=== PATIENT | male | born 1990 | race Caucasian/White ===

== ENCOUNTER 2025-04-03 17:13 | Emergency (ER) | payer OTHER, SELFPAY ==
[2025-04-03 17:25] VITALS: BP 153/88; PULSE 78; TEMP 36.7; O2SAT 98; BMI 43.7
--- OUTSIDE RECORDS SUMMARY | 2025-04-03 17:37 | XMS_ITS | Encounter Summary ---
Author Organization [facility] tem Address [facility] [id number] [address] 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 Role Phone Luzma Lainez Juan F [employer] PROJECT ENGINEER Primary Care Provider + Encounter Details Date Type Department Care Team (Late st Contact Info) Description [facility]02[facility]2023 [facility] [address] [place] [id number] Elin Nelson CMA Social History Tobacco Use Types Packs/Day Years Used Date Smoking Tobacco: Never Smokeless Tobacco: Never Alcohol Use Standard Drinks/Week Comments Yes 0 (1 standard drink = 0.6 oz pur e alcohol) Occasional PHQ-2 Answer Date Recorded Total Score 0 09/04/2023 Childcare Answer Date Recorded Childcare Unknown 03/23/2019 Employment Answer Date Recorded Employment Unknown 03/23/2019 Hunger Screening Answer Date Recorded Within the past 12 months we worried whether our food would run out before we got money to buy more. Never True 09/04/2023 Within the past 12 months th e food we bought just didn't last and we didn't have money to get more. 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 He sated he doesnot know why he was not tested for anything. His breathing was so bad he got his mother's inhaler to help. He wanted to know what medical advice we could give him? I said I could not give him what totake for his symptoms that it had to come from the provider. He told me it was ridiculous and hung up on me. * Telephone Encounter - MARY ALICE Castro - 09/02/2023 4:07 PM EST His symptoms were more GI related at his appt and his lungs were clear. It appears his symptoms have changed if he is SOB. Please offer him soonest available appt or I can see him Saturday. In meantimehe can take Claritin D or Zyrtec D and I can send him an inhaler. * Telephone Encounter - Elin Nelson CMA - 09/02/2023 4:07 PM EST Left message for patient to call if any other questions came about. * Telephone Encounter - Elin Nelson CMA - 09/02/2023 4:07 PM EST Pt would like an inhaler sent in documented in this encounter Plan of Treatment Not on file documented as of this encounter Visit Diagnoses Not on filedocumented in this encounter Additional Health Concerns Assessment Noted Time PHQ-9 Depression Total Score: 0 08/29/20 23 12:51 PM EST documented as of this encounter Care Teams [employer] Printing Press Operator Relationship Specialty Start Date End Date Luzma Lainez APRN-CNP [address] [place] [address] PCP - General Internal Medicine 03/06/23 documented as of this encounter
--- NOTE | 2025-04-03 17:51 | ED_ITS ---
HPI HPI - General Adult General Chief complaint: Extremity Problem, Nontraumatic Stated complaint: NUMBNESS IN L HAND, R FINGERTIPS Time Seen by Provider: 04/03/25 17:27 Source: patient Mode of arrival: walk-in Limitations: no limitations History of Present Illness HPI narrative: Patient is a 34-year-old male who presents to the emergency department today for evaluation of concerns for paresthesias to his left upper extremity. He denies any injuries/trauma. He reports he works at [employer] on an [employer] line and reports repetitive movement of his upper extremities. He mentions for the past week he has had paresthesias mostly to the lower aspect of his left arm through the fingertips. He reports this is worsened by raising his left arm and does endorse some pain to the posterior shoulder region. He denies any neck or back pain. Historically no fevers or malignancy. Related Data Previous Rx's ?Medication ?Instructions ?Recorded methylprednisolone 4 mg tablets in 4 mg PO QID 4 doses #21 ea 04/03/25 a dose pack (Medrol (Abbe)) Allergies Allergy/AdvReac Type Severity Reaction Status Date / Time fish oil Allergy Severe Hives Verified 04/03/25 17:24 Review of Systems ROS Status of ROS 10 or more systems reviewed and unremark able except as noted in history and below PFSH PFSH Social History Little interest or pleasure in doing things: not at all Feeling down, depressed, or hopeless: not at all Exam Narrative Exam Narrative: Constituational: Awake/ alert, no apparent distress, well hydrated HENMT: normocephalic, external ears normal, moist oral mucous membranes and oropharynx normal Eyes: EOMI and conjunctivae normal Neck: ROM intact Chest: inspection of chest normal Respiratory: Normal respiratory effort, clear to auscultation bilaterally Cardio: regular rate and regular rhythm GI: soft to palpation and non-tender Back: nontender MSK: + Mild discomfort to palpation of her posterior L shoulder otherwise ROM intact, negative Tinel and Phalen sign, +NVI Skin: no rashes or petechiae Neuro: no focal deficits Psych: mental status grossly normal Constitutional Vital Signs, click to edit/add: Last Vital Signs Temp 98.1 F 04/03/25 17:25 Pulse 78 04/03/25 17:25 Resp 16 04/03/25 17:25 BP 153/88 H 04/03/25 17:25 Pulse Ox 98 04/03/25 17:25 O2 Del Method Room Air 04/03/25 17:25 Course Vital Signs Vital signs: Vital Signs Temperature 98.1 F 04/03/25 17:25 Pulse Rate 78 04/03/25 17:25 Respiratory Rate 16 04/03/25 17:25 Blood Pressure 153/88 H 04/03/25 17:25 Pulse Oximetry 98 04/03/25 17:25 Oxygen Delivery Method Room Air 04/03/25 17:25 Temperature 98.1 F 04/03/25 17:25 Pulse Rate 78 04/03/25 17:25 Respiratory Rate 16 04/03/25 17:25 Blood Pressure 153/88 H 04/03/25 17:25 Pulse Oximetry 98 04/03/25 17:25 Oxygen Delivery Method Room Air 04/03/25 17:25 Medical Decision Making MDM Narrative Medical decision making narrative: Patient is a well-appearing 34-year-old male who presented to the emergency department today for evaluation of concerns for paresthesias to the distal left upper extremity that is reproducible and exacerbated by raising his left arm at the shoulder with associated posterior shoulder discomfort on palpation that will reproduce the paresthesias. Initial examination patient with clinical evidence consistent with radiculopathy of upper extremity. Otherwise no concerning neurovascular or motor findings on exam. X-ray imaging reviewed by ER of the left shoulder without critical findings. Discussed this with the patient including recommendations for supportive care. Will discharge home with Medrol Dosepak. Advised on follow-up with patient's primary care provider for reevaluation. Discussed signs and symptoms of any worsening condition and when to consider reevaluation by the emergency department. Patient verbalized an understanding of this and is agreeable with the plan to be discharged home. Medical Records Medical records reviewed: Yes I reviewed the patient's medical records Imaging Data XR left shoulder: Attestation: I personally reviewed and interpreted this imaging study as follows: My impression: No acute findings including fracture or dislocation Discharge Plan Discharge Chief Complaint: Extremity Problem, Nontraumatic Clinical Impression: Radiculopathy affecting upper extremity Patient Disposition: Home, Self-Care Prescriptions / Home Meds: New methylprednisolone [Medrol (Abbe)] 4 mg tablets,dose pack 4 mg PO QID Qty: 21 0RF Print Language: Palestinian Instructions: Cervical Radiculopathy (ED) Additional Instructions: Dosepak as prescribed. Rest, ice any sore areas. Alternate Tylenol and ibuprofen as needed for any pain. Please call to schedule follow-up appointment with primary care provider listed below for reevaluation. Referrals: Ash Joseph MD [Physician, Family Practice] - 1 week Physician,Non-Staff, [Primary Care Provider] - 1 week
== END 2025-04-03 19:08 | disposition home or self-care (01) ==
PROVIDERS: Emergency Provider Student in an Organized Health Care Education/Training Program
DX: M54.10 Radiculopathy, site unspecified (principal)
CPT/HCPCS: 73030; 99283

== ENCOUNTER 2025-05-30 19:29 | Emergency (ER) | payer OTHER, SELFPAY ==
[2025-05-30 19:54] VITALS: BP 132/95; PULSE 63; TEMP 36.9; O2SAT 97; BMI 43.7
--- NOTE | 2025-05-30 20:26 | ED.EXTPRO1 ---
HPI - Extremity Problem General Chief complaint: Extremity Problem, Nontraumatic Stated complaint: RIGHT ARM IS TINGLING Time Seen by Provider: 05/30/25 19:53 Source: patient Mode of arrival: walk-in Limitations: no limitations History of Present Illness HPI Narrative: Patient 34-year-old male presents to the ER with concerns of tingling sensation in his right arm. Patient notes he had similar symptoms in his left a few weeks ago and still gets symptoms occasionally at night. Patient states he has been working at [employer] for the past year he denies any injury fall or trauma. He notes a tingling sometimes burning sensation in his thumb index and middle finger with radiation to his wrist and forearm. Patient is right-hand dominant. He notes the sometimes be burning in nature and shoot up to his mid humeral area. He denies pain to his shoulder or elbow. 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 Patient states he did not follow-up yet with a new primary care physician but states he did not feel he could work today with symptoms in the right hand. Patient denies any chest pain shortness of breath or abdominal pain. He denies any exertional symptoms. He notes his symptoms can be worse sometimes at night depending on his position of sleep. He denies any fevers or chills. Denies neck pain but states he does crack his neck frequently, I am 6 foot 3 and crack my neck all the time though. MD Complaint: Denies extremity swelling Quality: Reports burning and other (tingling) Related Data Previous Rx's ?Medication ?Instructions ?Recorded ibuprofen 600 mg tablet 600 mg PO TID PRN pain #30 tabs 05/30/25 Allergies Allergy/AdvReac Type Severity Reaction Status Date / Time fish oil Allergy Severe Hives Verified 05/30/25 19:52 Review of Systems ROS Constitutional Denies: fever or chills Ears, nose, mouth, and throat Denies: throat pain, neck pain or throat swelling Respiratory Denies: shortness of breath, cough or wheezing Musculoskeletal Denies: back pain or neck pain Neurological Reports: numbness in extremities; Denies: headache or weakness in extremities PFSH PFSH Social History Little interest or pleasure in doing things: not at all Feeling down, depressed, or hopeless: not at all Exam Narrative Exam Narrative: Nurses notes and vital signs reviewed and patient is not hypoxic. General: The patient appears well and in no apparent distress. Patient is resting comfortably on cart. Skin: Warm, dry, no pallor noted. Head: Normocephalic, atraumatic Neck: Supple, trachea mid-line, no tenderness, no lymphadenopathy, cervical neck tenderness, neg spurlings. Eye: Pupils are equal, round and reactive to light, EOMI Ears, Nose, Mouth, and Throat: TM are clear, normal light reflex, oral mucosa is moist, no posterior oropharynx erythema or hypertrophy, uvula is mid-line Cardiovascular: Regular Rate and Rhythm Respiratory: Patient is in no distress, no accessory muscle use, lungs are clear to auscultation, no wheezing, rales or rhonchi. Chest Wall: no tenderness Back: non-tender, no CVA tenderness Musculoskeletal: normal ROM, no tenderness, no swelling, negative Angie test, full strength bilateral upper extremities. Mark's test shows collateral circulation intact bilaterally in the hands. Patient has significantly prominent Tinel's and Phalen signs bilateral wrists with right greater than left on testing. Sensation to touch is intact. Neurological: A&O x4, 2+ symmetric biceps, triceps and brachial radialis, negative clonus, negative Syeda sign. Psychiatric: Cooperative Constitutional Vital Signs, click to edit/add: Last Vital Signs Temp 98.4 F 05/30/25 19:54 Pulse 63 05/30/25 19:54 Resp 17 05/30/25 19:54 BP 132/95 H 05/30/25 19:54 Pulse Ox 97 05/30/25 19:54 O2 Del Method Room Air 05/30/25 19:54 Course Vital Signs Vital signs: Vital Signs Temperature 98.4 F 05/30/25 19:54 Pulse Rate 63 05/30/25 19:54 Respiratory Rate 05/30/25 19:54 Blood Pressure 132/95 H 05/30/25 19:54 Pulse Oximetry 97 05/30/25 19:54 Oxygen Delivery Method Room Air 05/30/25 19:54 Temperature 98.4 F 05/30/25 19:54 Pulse Rate 63 05/30/25 19:54 Respiratory Rate 17 05/30/25 19:54 Blood Pressure 132/95 H 05/30/25 19:54 Pulse Oximetry 97 05/30/25 19:54 Oxygen Delivery Method Room Air 08/17/25 19:54 MDM - Extremity (Nontraumatic) MDM Narrative Medical decision making narrative: Patient's symptoms and presentation. He does not have a family doctor and states he had similar symptoms that were pronounced in the left hand prior to developing symptoms in the right hand. Symptoms in the right have been ongoing since Saturday with position and movement. 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 We discussed stretching and anti-inflammatories for conservative measures. He is encouraged to follow-up with orthopedics for evaluation or his family doctor as we discussed he may require an EMG or night splinting if not getting improvement given recurrent symptoms. He is aware that there is a surgical treatment and putting off symptoms may result in permanent nerve impairment. Patient will work on positioning his hands better for sleep. He does not appear to have any cervical radicular symptoms with negative Spurling's today. The patient is to followup with primary care physician/ orthopedics in next 2-3 days or to return to the emergency department should any of the signs or symptoms worsen or new symptoms develop. Patient had questions answered. The patient agrees with the following Diagnosis and Treatment plan and the patient will be discharged home. Discharge Plan Discharge Chief Complaint: Extremity Problem, Nontraumatic Clinical Impression: Carpal tunnel syndrome on both sides, Paresthesia of left upper extremity, Paresthesia of right upper extremity Patient Disposition: Home, Self-Care Time of Disposition Decision: 20:27 Condition: Good Prescriptions / Home Meds: New ibuprofen 600 mg tablet 600 mg PO TID PRN (Reason: pain) Qty: 30 0RF Print Language: British Instructions: Carpal Tunnel Syndrome (DC) Referrals: Ash Joseph MD [Physician, Family Practice] - 1 week Brandon Perez DO [Physician, Orthopedics] - As soon as possible
--- NOTE | 2025-05-30 20:42 | PC.NURSE ---
i gave this patient verbal and written discharge orders along with 1 e-script and 1 work note and this patient voices yes to understanding these. at time of discharge this patient voices no concerns, needs and shows no signs of distress
== END 2025-05-30 20:41 | disposition home or self-care (01) ==
PROVIDERS: Emergency Provider Emergency Medicine
DX: G56.03 Carpal tunnel syndrome, bilateral upper limbs (principal); R20.2 Paresthesia of skin
CPT/HCPCS: 99283